=== PATIENT | female | born 1960 | race Caucasian/White ===

== ENCOUNTER 2024-04-11 23:50 | Inpatient (IN) ==
[2024-04-12] MEDS ORDERED: Albuterol 2.5mg/3 ml (0.083%) NEB.SOLN INH ONE (00:22)
[2024-04-12 00:46] LABS: PCO2 Arterial 61 mmHg (35-45); PO2 Arterial 191 mmHg (80-100)
[2024-04-12] MEDS: Albuterol/Ipratropium NEB.SOL (2.5/0.5 MG) 3 ML NEB.SOLN INH ONE (00:51)
[2024-04-12 04:01] LABS: Venous Bicarbonate HCO3 27.5 mmol/L (24-28)
[2024-04-12] MEDS: cefTRIAXone 1 gm/50 mL D5W 1 GM/50 ML BAG IV SCH (04:08)
[2024-04-12] MEDS: methylPREDNISolone SOD SUCC 40 mg/ml 1 ml VIAL IV SCH (04:08)
[2024-04-12] MEDS: Albuterol/Ipratropium NEB.SOL (2.5/0.5 MG) 3 ML NEB.SOLN INH SCH ×2 (04:27→13:27)
[2024-04-12 05:36] LABS: ABS Lymphocytes 0.3 10^3/uL (1.0-4.8); ABS Monocytes 0.2 10^3/uL (0.0-0.9); ABS Neutrophils 11.8 10^3/uL (1.5-7.6); ABS Nucleated RBC 0.01 10^3/ul; Hematocrit 40.6 % (35-45); Hemoglobin 13.3 g/dL (11.5-14.3); Lymphocyte % 2.2 %; Mean Corpuscular Hemoglobin 29.6 pg (27-33); Mean Corpuscular Hgb Conc 32.8 g/dL (31-36); Mean Corpuscular Volume 90.3 fL (80-97); Mean Platelet Volume 8.5 fL (7.5-11.2); Platelet Count 268 10^3/uL (150-450); Red Blood Count 4.49 10^6/uL (3.63-4.92); Red Cell Distribution Width 13.2 % (12-17); White Blood Count 12.2 10^3/uL (3.8-11.8)
[2024-04-12 05:38] LABS: ALT 22 U/L (7-52); Albumin 4.4 g/dL (3.2-5.2); Albumin/Globulin Ratio 1.6 (1-3); Alkaline Phosphatase 55 U/L (35-149); Anion Gap 8 mmol/L (2-16); Blood Urea Nitrogen 19 mg/dL (6-24); CO2 Carbon Dioxide 30 mmol/L (22-32); Calcium 9.7 mg/dL (8.6-10.3); Chloride 96 mmol/L (101-111); Creatinine, Serum 0.73 mg/dL (0.51-0.95); Globulin 2.8 g/dL (2-4); Glucose 244 mg/dL (70-100); Sodium 134 mmol/L (135-145); Total Bilirubin 0.5 mg/dL (0.2-1.0); Total Protein 7.2 g/dL (6.4-8.9); eGFR CKD-EPI 90.6 (>60)
[2024-04-12] MEDS ORDERED: Lorazepam PYXIS KEY PRN (08:49)
[2024-04-12] MEDS ORDERED: Dextrose 50% Syringe 50 ml 25 GM/50 ML SYRINGE IV PUSH PRN (08:53)
[2024-04-12] MEDS: LORazepam 2 mg VIAL 1 ml IV PUSH ONE (08:57)
[2024-04-12] MEDS ORDERED: Labetalol IV 5 MG/ML 20 ml VIAL IV PUSH PRN (08:59)
[2024-04-12] MEDS: Morphine 2 MG/ML SYRINGE IV ONE (09:30)
[2024-04-12] MEDS: Morphine 4 MG/ML VIAL (1 ml) ONE (09:31)
[2024-04-12] MEDS: Albuterol 2.5mg/3 ml (0.083%) NEB.SOLN INH PRN (09:32)
[2024-04-12 10:33] LABS: T4, Total 9.65 mcg/dL (6.09-12.23)
[2024-04-12] MEDS: Dexmedetomidine 1,000 MCG in NS 0.9% 250 ml 240 ML IV SCH (11:51)
[2024-04-12] MEDS: Enoxaparin 40 MG/0.4 ML SYR SUBCUT SCH (11:58)
[2024-04-12] MEDS: Albuterol/Ipratropium NEB.SOL (2.5/0.5 MG) 3 ML NEB.SOLN INH PRN (22:27)
[2024-04-13] MEDS: Calcium Carb (TUMS) 500 mg CHEW TAB PO PRN (04:31)
[2024-04-13 04:49] LABS: ABS Lymphocytes 1.6 10^3/uL (1.0-4.8); ABS Neutrophils 8.9 10^3/uL (1.5-7.6); Hematocrit 37.1 % (35-45); Hemoglobin 12.2 g/dL (11.5-14.3); Mean Corpuscular Hemoglobin 29.4 pg (27-33); Mean Corpuscular Hgb Conc 32.8 g/dL (31-36); Mean Corpuscular Volume 89.6 fL (80-97); Mean Platelet Volume 7.5 fL (7.5-11.2); Platelet Count 271 10^3/uL (150-450); Red Blood Count 4.14 10^6/uL (3.63-4.92); Red Cell Distribution Width 13.4 % (12-17); White Blood Count 11.6 10^3/uL (3.8-11.8)
[2024-04-13 05:07] LABS: Albumin/Globulin Ratio 1.7 (1-3); Calcium 9.3 mg/dL (8.6-10.3); Creatinine, Serum 0.63 mg/dL (0.51-0.95); Globulin 2.4 g/dL (2-4); Magnesium 2.2 mg/dL (1.9-2.7); Potassium 3.9 mmol/L (3.5-5.0); Total Bilirubin 0.5 mg/dL (0.2-1.0); Total Protein 6.4 g/dL (6.4-8.9); eGFR CKD-EPI 97.8 (>60)
[2024-04-13] MEDS: cefTRIAXone 1 gm/50 mL D5W 1 GM/50 ML BAG IV SCH (10:19)
[2024-04-13] MEDS: methylPREDNISolone SOD SUCC 40 mg/ml 1 ml VIAL IV SCH (10:20)
[2024-04-13] MEDS: SPIRIVA Respimat (tiotropium) 2.5 mcg/inh Inhaler INH SCH (12:17)
[2024-04-13] MEDS ORDERED: Albuterol/Ipratropium NEB.SOL (2.5/0.5 MG) 3 ML NEB.SOLN INH PRN (15:38)
[2024-04-13] MEDS: Morphine 2 MG/ML SYRINGE IV PRN (16:15)
[2024-04-13] MEDS: Albuterol 2.5mg/3 ml (0.083%) NEB.SOLN INH ONE (16:41)
[2024-04-13] MEDS: Albuterol 2.5mg/3 ml (0.083%) NEB.SOLN INH PRN (19:19)
[2024-04-13] MEDS: Mometasone/Formoter 200/5 MDI INH SCH (19:22)
[2024-04-13] MEDS: OLANZapine IM (NF) 10 MG VIAL IM ONE (20:16)
[2024-04-14 07:07] LABS: ABS Eosinophils 0.1 10^3/uL (0.0-0.5); ABS Lymphocytes 2.8 10^3/uL (1.0-4.8); ABS Monocytes 0.8 10^3/uL (0.0-0.9); ABS Neutrophils 4.7 10^3/uL (1.5-7.6); Hematocrit 36.6 % (35-45); Hemoglobin 12.2 g/dL (11.5-14.3); Lymphocyte % 33.2 %; Mean Corpuscular Hemoglobin 30.2 pg (27-33); Mean Corpuscular Hgb Conc 33.3 g/dL (31-36); Mean Corpuscular Volume 90.6 fL (80-97); Platelet Count 246 10^3/uL (150-450); Red Blood Count 4.04 10^6/uL (3.63-4.92); Red Cell Distribution Width 13.3 % (12-17); White Blood Count 8.4 10^3/uL (3.8-11.8)
[2024-04-14 07:26] LABS: Albumin 3.7 g/dL (3.2-5.2); Albumin/Globulin Ratio 1.7 (1-3); Calcium 9.4 mg/dL (8.6-10.3); Creatinine, Serum 0.67 mg/dL (0.51-0.95); Globulin 2.2 g/dL (2-4); Magnesium 1.9 mg/dL (1.9-2.7); Potassium 4.2 mmol/L (3.5-5.0); Total Bilirubin 0.6 mg/dL (0.2-1.0); Total Protein 5.9 g/dL (6.4-8.9); eGFR CKD-EPI 96.3 (>60)
[2024-04-14] MEDS: cefTRIAXone 1 gm/50 mL D5W 1 GM/50 ML BAG IV SCH (11:21)
[2024-04-15] MEDS: Ondansetron ODT 4 mg TAB 4 MG TAB SL PRN (17:51)
[2024-04-18 08:42] LABS: Rapid COVID-19 Molecular Undetected (Undetected)
[2024-04-18 09:08] VITALS: BP 127/75
== END 2024-04-18 10:10 | DRG 189 ==
LOC: ED 23:50 → SUATTDRO 04-12 03:53 → EDHOLD 04-12 03:53 → ICU 04-12 06:54 → MED 04-13 20:54
PROVIDERS: ADMIT Internal Medicine; ATTEND Internal Medicine